=== PATIENT | female | born 1970 | race Hispanic/Latino ===

== ENCOUNTER 2016-06-28 20:19 | Emergency (ER) | payer SELFPAY ==
[~2016-06-28] VITALS: Ht 149.9 cm; Wt 95.5 kg
[~2016-06-28 20:19] MED LIST: AMOX-366 PO; CIPR-198 PO; CIPR-231 PO; DICY20TA33 PO; DOCU-41 PO; HYDR-4003 PO; IBUP-1827 PO; L.AC1CAP6 PO; LACT1CAP65 PO; METR500T PO; METR500T19 PO; ONDA4TAB6 PO; ONDA4TAB9 PO; ONDA8TAB10 PO; OXYC-407 PO; OXYC1TAB24 PO; POLY17PO6 PO; SULF1TAB7 PO
[2016-06-28 20:34] VITALS: BP 137/90; PULSE 73; RESP 16; O2SAT 93
[2016-06-28 21:19] LABS: BASOPHILS % (AUTO) 0.1 % (0-3); EOSINOPHILS % (AUTO) 1.6 % (0-5); Mean Corpuscular Hemoglobin 28.8 pg (27.0-35.0); Mean Corpuscular Volume 84.5 fL (81-100); NEUTROPHILS % (AUTO) 67.2 % (40-74); Platelet Count 236 bil/L (150-400)
[2016-06-28 21:40] LABS: Magnesium 1.9 mg/dL (1.6-2.6)
[2016-06-28 21:44] LABS: APPEARANCE,URINE CLEAR (CLEAR,HAZY); COLOR,URINE YELLOW (YELLOW); OCCULT BLOOD,URINE SMALL (NEGATIVE); UROBILINOGEN,URINE NORMAL (NORMAL)
--- NOTE | 2016-06-28 22:40 | ED.REPORT ---
HPI-Abd Pain F 40 and Over Date of Service Jun 28, 2016 ED Provider: Dr. Brigido Sabillon D.O. A 45 year old female with a history of diverticulosis with recurrent diverticulitis presents to the ED with diffuse abdominal pain onset just prior to arrival. Associated symptoms include nausea, vomiting, and diarrhea. Her symptoms are similar to those from previous diverticulitis, for which she has a colon surgery scheduled in the near future. Nursing Notes Stated Complaint: DIVERTICULITIS Chief Complaint: Female Abdominal Pain Nursing Notes Reviewed: Yes Allergies: Coded Allergies: No Known Allergies (Verified , 06/28/16) Scheduled Amoxicillin/Clav K 875-125 mg (Augmentin 875-125 mg) 1 Each Tablet 1 TABLET PO BID Amoxicillin/Clav K 875-125 mg (Augmentin 875-125 mg) 1 Each Tablet 1 TABLET PO BID Amoxicillin/Clav K 875-125 mg (Augmentin 875-125 mg) 1 Each Tablet 1 TABLET PO BID Ciprofloxacin (Cipro) 500 Mg Tablet 500 MG PO BID Ciprofloxacin (Cipro) 500 Mg Tablet 500 MG PO BID Ciprofloxacin (Ciprofloxacin) 500 Mg Tablet 500 MG PO BID L.acidoph & Paracasei,B.lactis (Probiotic) 10 Billion Cell Capsule 1 EACH PO DAILY Lactobacillus Acidophilus (Probiotic) 1 Each Capsule 1 EACH PO DAILY Metronidazole (Metronidazole) 500 Mg Tablet 500 MG PO QID Metronidazole (Flagyl) 500 Mg Tablet 500 MG PO Q8H Metronidazole (Metronidazole) 500 Mg Tablet 500 MG PO TID Metronidazole (Metronidazole) 500 Mg Tablet 500 MG PO TID Metronidazole (Flagyl) 500 Mg Tablet 500 MG PO Q8H Polyethylene Glycol 3350 (Miralax) 17 Gm Powd.pack 17 GM PO DAILY Sulfamethoxazole/Trimeth 800-160 mg (Bactrim DS) 1 Each Tablet 1 TABLET PO BID Scheduled PRN Dicyclomine (Bentyl) 20 Mg Tablet 20 MG PO QID PRN PRN For Pain Docusate Sodium (Colace) 100 Mg Capsule 200 MG PO DAILY PRN PRN For Constipation Hydrocodone-Acetaminophen 5-325 mg (Hydrocodone-Acetaminophen 5-325 mg) 1 Each Tablet 1-2 TABLET PO Q4H PRN PRN For Pain Hydrocodone-Acetaminophen 5-325 mg (Hydrocodone-Acetaminophen 5-325 mg) 1 Each Tablet 1 TABLET PO q4-6h PRN PRN For Pain Hydrocodone-Acetaminophen 5-325 mg (Hydrocodone-Acetaminophen 5-325 mg) 1 Each Tablet 1 TABLET PO Q4H PRN PRN For Pain Hydrocodone-Acetaminophen 5-325 mg (Hydrocodone-Acetaminophen 5-325 mg) 1 Each Tablet 1 TABLET PO Q6H PRN PRN For Pain Hydrocodone-Acetaminophen 5-325 mg (Hydrocodone-Acetaminophen 5-325 mg) 1 Each Tablet 1-2 TABLET PO TID PRN PRN For Pain Hydrocodone-Acetaminophen 5-325 mg (Hydrocodone-Acetaminophen 5-325 mg) 1 Each Tablet 1 TABLET PO Q4H PRN PRN For Pain Ibuprofen (Ibuprofen) 600 Mg Tablet 600 MG PO QID PRN PRN For Pain Ondansetron (Zofran) 4 Mg Tablet 4 MG PO Q4H PRN PRN For Nausea Ondansetron ODT (Ondansetron ODT) 8 Mg Tab.rapdis 8 MG PO Q4H PRN PRN For Nausea Ondansetron ODT (Zofran ODT) 4 Mg Tablet 4 MG PO Q4H PRN PRN For Nausea Oxycodone HCl/Acetaminophen 5-325 (Endocet 5-325) 1 Each Tablet 1 TABLET PO Q4H PRN PRN For Pain oxyCODONE-Acetaminophen 5-325 mg (oxyCODONE-Acetaminophen 5-325 mg) 1 Each Tablet 1-2 TAB PO Q6H PRN PRN For Pain General Time Seen by MD: 22:39 Chief Complaint Abdominal pain Hx Obtained From: Patient Arrived By: Walk-in Sudden in Onset?: No Onset Occurred: Just prior to arrival Symptom Duration: Since onset Location: : Diffuse Quality: Painful Severity: Current: Moderate Severity: Maximum: Moderate Associated with: Reports: Diarrhea, Nausea, Vomiting, Denies: Fever Pertinent Negative: Relieved by nothing Context Related History: Reports: Diverticulosis Recent Healthcare: No recent doctor visit Similar Sx Previous: Yes Past Medical History Past Medical History Notes: PCP Dr. Weldon Recurrent diverticulitis - 10 CT's in past few years, 9 positive for diverticulitis, last CT + 06/2015 Past Medical History Diverticulosis w/ recurrent diverticulitis Past Surgical History Colonoscopy 09/2015 with diverticulosis and small segments of possible hyperplasia - biopsies negative x3 Appendectomy Cholecystectomy Hysterectomy Family History noncontributory Smoking History Never Smoker Social History Alcohol Use: Denies alcohol use Drug Use: Denies drug use Other Social History: Good social support, Local resident Ambulatory Status Independent Review of Systems Constitutional: Denies: Fever Respiratory: Denies: Non-productive cough, Shortness of breath GI: Reports: Abdominal pain, Diarrhea, Nausea, Vomiting Complete sys rev & neg: except as marked. Physical Exam Vital Signs Vital Signs (First) Date Time Temp Pulse Resp B/P Pulse Ox O2 Delivery O2 Flow Rate FiO2 06/28/16 20:34 36.9 73 16 137/90 93 Room Air Initial VS: Reviewed Head / Eyes: Atraumatic, Normocephalic ENT: Conjunctiva normal, No scleral icterus Neck: Supple, Non-tender, Full range of motion Skin: Warm, Dry, No cyanosis Neurologic: Alert, Oriented, Nonfocal Psychiatric: Mood/affect normal, Behavior normal, Normal thought content General/Constitutional: Awake, Alert, No acute distress Respiratory / Chest: Breath sounds NL, Breath sounds = bilat, No respiratory distress Cardiovascular: Heart rate NL, Regular rhythm, Heart sounds NL Abdomen: Soft Tenderness/Guarding/Rebound: Positive: Tender diffuse Interpretation & Diagnostics Lab Results Interpretation Result Diagram: 06/28/16210806/28/162108 Test 06/28/16 21:09 06/28/16 21:25 06/28/16 23:15 White Blood Count 11.6th/mm3 (3.8-10.1) Red Blood Count 4.44mil/mm3 (3.90-5.20) Hemoglobin 12.8g/dL (12.0-15.6) Hematocrit 37.5% (35.0-46.0) Mean Corpuscular Volume 84.5fL (81-100) Mean Corpuscular Hemoglobin 28.8pg (27.0-35.0) Mean Corpuscular Hemoglobin Concent 34.1% (32.0-37.0) Red Cell Distribution Width 12.8% (12.3-15.4) Platelet Count 236bil/L (150-400) Neutrophils (%) (Auto) 67.2% (40-74) Lymphocytes (%) (Auto) 25.9% (14-46) Monocytes (%) (Auto) 5.0% (4-12) Eosinophils (%) (Auto) 1.6% (0-5) Basophils (%) (Auto) 0.1% (0-3) Sodium Level 135mEq/L (134-144) Potassium Level 3.5mEq/L (3.5-5.2) Chloride Level 99mEq/L (97-108) Carbon Dioxide Level 23mmol/L (18-29) Blood Urea Nitrogen 16mg/dL (6-24) Creatinine 0.54mg/dL (0.57-1.00) Estimat Glomerular Filtration Rate 176mL/min (>59) Glucose Level 104mg/dL (60-99) Lactic Acid Level 1.1mmol/L (0.4-2.0) Calcium Level 8.9mg/dL (8.5-10.1) Magnesium Level 1.9mg/dL (1.6-2.6) Total Bilirubin 0.2mg/dL (0.0-1.2) Aspartate Amino Transf (AST/SGOT) 22U/L (0-50) Alanine Aminotransferase (ALT/SGPT) 24U/L (0-32) Alkaline Phosphatase 49U/L (25-150) Total Protein 8.1g/dL (6.4-8.4) Albumin 4.1g/dL (3.4-5.0) Lipase 23U/L (13-60) Urine Color Yellow (YELLOW) Urine Appearance Clear (CLEAR,HAZY) Urine pH 6.0 (5.0-8.0) Urine Specific [place] 1.020 (1.003-1.035) Urine Protein Negativemg/dL (NEG,TRACE) Urine Glucose (UA) Negativemg/dL (NEGATIVE) Urine Ketones Negativemg/dL (NEGATIVE) Urine Occult Blood Small (NEGATIVE) Urine Nitrite Negative (NEGATIVE) Urine Bilirubin Negative (NEGATIVE) Urine Urobilinogen Normalmg/dL (NORMAL) Urine Leukocyte Esterase Negative (NEGATIVE) Urine RBC 0-2/hpf (0-2) Urine WBC 0-5/hpf (0-5) Urine Epithelial Cells None/hpf (NONE-MOD) Urine Crystals None seen (NONE SEEN) Urine Bacteria None/hpf (NONE-FEW) Urine Hyaline Casts None/lpf (NONE) Urine Granular Casts None seen (NONE SEEN) Urine Waxy Casts None seen (NONE SEEN) Urine Red Blood Cell Casts None seen (NONE SEEN) Urine White Blood Cell Casts None seen (NONE SEEN) Urine Mucus Present (None Seen) Urine Trichomonas None seen (NONE SEEN) Urine Yeast None (NONE SEEN) Urinalysis Comment None Urine Culture Reflexed Not indicated Hold Purple Top Tube Received (Received) Hold Blue Top Tube Received (Received) Hold [place] Top Tube Received (Received) Hold Giordano Top Tube Received (Received) Re-Eval/Medical Decision Med Decision/Clinical Course 45-year-old female with a history of recurrent left-sided diverticulitis presents with 6 hours of left lower quadrant abdominal pain that is consistent with prior bouts of diverticulitis. She did not have a fever. On examination she had mild tenderness without any evidence of peritonitis. Laboratory work showed a mild leukocytosis. A presumed diagnosis of diverticulitis was made. She received IV Rocephin and Flagyl. I consulted with Dr. Prashant dong from [facility]. We are going to forego CT imaging because she is going to have next day follow -up. She has had multiple CAT scans within the last year. I discussed this with Denise using the flour broker. She concurs. At discharge she was essentially pain-free and she looked well. No signs of sepsis or peritonitis. Next a follow-up arranged. Source of Hx: Old records Re-Evaluation/Progress : Time of Eval: 01:18 Patient Status: Condition improved Re-Evaluation/Progress Note: Discussed with patient lab results, diagnosis, and plan for discharge. Follow-up and return to the ER instructions given. Patient agrees with plan for care and all questions were addressed. Consultation : Referral / Consult Name: Irena Cerda MD Consulted With: Primary care physician Call Returned at: 23:39 Financial Sales Associate: Will see in office, Agrees with eval, Agrees with plan Note: Patient can be seen at [facility] tomorrow Counseled Regarding: Diagnosis, Lab results, Need for follow-up, When/why to return to ED Discharge & Departure Primary Impression: Diverticulitis Diverticulitis site: unspecified part of intestinal tract Diverticulitis bleeding: without bleeding Diverticulitis complication: without perforation or abscess Qualified Code: K57.92 - Diverticulitis of intestine, part unspecified, without perforation or abscess without bleeding Disposition: Home Discharge Condition All VS Reviewed: Yes Condition: Stable Patient Instructions: Acute Abdominal Pain (ED), Diverticulitis (ED) Additional Instructions: Your signs and symptoms are most consistent with acute diverticulitis. White blood cell count is 11,000. You and I have decided to not perform a CAT scan because you have had multiple CAT scans this year. We treated you for diverticulitis with Rocephin and Flagyl. Take Cipro twice daily for 10 days. Take Flagyl 3 times daily for 10 days. I consulted with Dr. Cerda. You need to be seen tomorrow at the [facility]. If her pain has not improved or you are feeling worse then he will have to have another CAT scan. He may take 1-2 Dieterich every 6 hours as needed tonight. Clear liquid diet. Do not drive tonight. Do not drive or drink alcohol or consume acetaminophen while taking the Dieterich. Call [facility] clinic first thing in the morning for follow-up time. Tell them that you were seen in the emergency department and need to be followed up with tomorrow. Do not hesitate to return if any problems or any worsening symptoms. GOOGLE TRANSLATE Chantale signos y sntomas son ms consistentes con la diverticulitis aguda. El recuento de glbulos blancos es de 11.000. T y yo hemos decidido no realizar lida exploracin CAT porque has tenido varias tomografas CAT jania ao. Te tratamos por diverticulitis con Rocephin y Flagyl. [place] Cipro dos veces al da luigi 10 rajan. [place] Flagyl 3 veces al da luigi [address] rajan[address] Consult con el Dr[address] Cerda. Necesitas que te vean maana en la clnica [facility]. Si hernandez dolor no fonseca franchesca o usted se siente peor, entonces tendr que tener otro TAC. Puede goran 1-2 Dieterich cada 6 horas segn sea necesario esta noche. Dieta lquida adolph. No manejes esta noche. No conduzca ni cara alcohol ni consuma acetaminof n mientras tru el Dieterich. Llame a la clnica de [place] a primera hora de la ma phani para el tiempo de seguimiento. Dgales que usted fue visto en el departamento de emergencia y necesita ser seguido con maana. No dude en volver si hay problemas o cualquier empeoramiento de los sntomas. Referrals: Denzel Weldon MD (PCP) Scribe Attestation Portions of this note were transcribed by Yady Mueller. I, Dr. Sabillon, personally performed the history, physical exam, and medical decision-making; I reviewed and confirmed the accuracy of the information in the transcribed note. Signed by: Fredis Benavidez, 06/29/2016, 01:18 copies to: Denzel Weldon MD, Todd P DO Jun 28, 2016 22:40 YADY MUELLER Jun 28, 2016 23:09
[2016-06-28] MEDS ORDERED: Peds - CefTRIAXone 40 mg/mL 2,000 MG in Syringe 1 EACH IV ONE (22:45)
[2016-06-28] MEDS ORDERED: metroNIDAZOLE Inj 500 MG in IV Premix 1 EACH IV ONE (22:45)
[2016-06-28] MEDS ORDERED: cefTRIAXone 2,000 mg/D5W 50 mL IV Minibag Plus IV ONE ×2 (22:50)
[2016-06-28] MEDS ORDERED: Ondansetron 2 mg/mL 2 mL Inj IVPUSH PRN (23:00)
[2016-06-28] MEDS: HYDROmorphone 0.5 mg/0.5 mL iSecure Syringe IVPUSH PRN (23:15)
[2016-06-29] MEDS: HYDROmorphone 0.5 mg/0.5 mL iSecure Syringe IVPUSH PRN (00:25)
[2016-06-29] MEDS ORDERED: _HYDROcodone/APAP 5-325 mg Tablet PO PRN (01:00)
[2016-06-29 01:52] VITALS: BP 99/55; PULSE 63; RESP 14; O2SAT 97
== END 2016-06-29 01:53 | disposition home or self-care (01) ==
LOC: SED 20:19
DX: K57.32 Diverticulitis of large intestine without perforation or abscess without bleeding (principal); Z90.49 Acquired absence of other specified parts of digestive tract
CPT/HCPCS: 36415; 80053; 81000; 81025; 83605; 83690; 83735; 85025; 96365; 96366; 96368; 96375; 96376; 99285; J0696; J1170; J1200; J2405; J3490

== ENCOUNTER 2016-08-29 19:12 | Emergency (ER) | payer SELFPAY ==
[~2016-08-29] VITALS: Ht 147.3 cm; Wt 97.0 kg
[2016-08-29 19:17] VITALS: BP 127/77; PULSE 62; RESP 16; O2SAT 99
--- NOTE | 2016-08-29 20:06 | ED.REPORT ---
HPI-Abd Pain F 40 and Over Date of Service Aug 29, 2016 ED Provider: Denzel Jordan MD Pt is a Wolof speaking 45 year old female with a history of diverticulitis who presents to the ED with concerns for nausea, vomiting, diarrhea and LLQ abdominal pain that started 3 days ago. She reports that her last episode of diverticulitis was 3 months ago. She states that she had a normal colonoscopy in June. Pt admits to watery diarrhea for 3 days and well as non-bilious vomiting. She denies any fevers, sick contacts or any other symptoms.She reports that this pain feels similar to her previous episodes of diverticulitis. Nursing Notes Stated Complaint: DIVERTICULITIS Chief Complaint: Female Abdominal Pain Nursing Notes Reviewed: Yes Allergies: Coded Allergies: No Known Allergies (Verified , 06/28/16) Scheduled Amoxicillin/Clav K 875-125 mg (Augmentin 875-125 mg) 1 Each Tablet 1 TABLET PO BID Amoxicillin/Clav K 875-125 mg (Augmentin 875-125 mg) 1 Each Tablet 1 TABLET PO BID Amoxicillin/Clav K 875-125 mg (Augmentin 875-125 mg) 1 Each Tablet 1 TABLET PO BID Ciprofloxacin (Cipro) 500 Mg Tablet 500 MG PO BID Ciprofloxacin (Cipro) 500 Mg Tablet 500 MG PO BID Ciprofloxacin (Ciprofloxacin) 500 Mg Tablet 500 MG PO BID Ciprofloxacin (Ciprofloxacin) 500 Mg Tablet 500 MG PO BID L.acidoph & Paracasei,B.lactis (Probiotic) 10 Billion Cell Capsule 1 EACH PO DAILY Lactobacillus Acidophilus (Probiotic) 1 Each Capsule 1 EACH PO DAILY Metronidazole (Metronidazole) 500 Mg Tablet 500 MG PO QID Metronidazole (Flagyl) 500 Mg Tablet 500 MG PO Q8H Metronidazole (Metronidazole) 500 Mg Tablet 500 MG PO TID Metronidazole (Metronidazole) 500 Mg Tablet 500 MG PO TID Metronidazole (Flagyl) 500 Mg Tablet 500 MG PO Q8H Metronidazole (Flagyl) 500 Mg Tablet 500 MG PO Q8H Polyethylene Glycol 3350 (Miralax) 17 Gm Powd.pack 17 GM PO DAILY Sulfamethoxazole/Trimeth 800-160 mg (Bactrim DS) 1 Each Tablet 1 TABLET PO BID Scheduled PRN Dicyclomine (Bentyl) 20 Mg Tablet 20 MG PO QID PRN PRN For Pain Docusate Sodium (Colace) 100 Mg Capsule 200 MG PO DAILY PRN PRN For Constipation Hydrocodone-Acetaminophen 5-325 mg (Hydrocodone-Acetaminophen 5-325 mg) 1 Each Tablet 1-2 TABLET PO Q4H PRN PRN For Pain Hydrocodone-Acetaminophen 5-325 mg (Hydrocodone-Acetaminophen 5-325 mg) 1 Each Tablet 1 TABLET PO q4-6h PRN PRN For Pain Hydrocodone-Acetaminophen 5-325 mg (Hydrocodone-Acetaminophen 5-325 mg) 1 Each Tablet 1 TABLET PO Q4H PRN PRN For Pain Hydrocodone-Acetaminophen 5-325 mg (Hydrocodone-Acetaminophen 5-325 mg) 1 Each Tablet 1 TABLET PO Q6H PRN PRN For Pain Hydrocodone-Acetaminophen 5-325 mg (Hydrocodone-Acetaminophen 5-325 mg) 1 Each Tablet 1-2 TABLET PO TID PRN PRN For Pain Hydrocodone-Acetaminophen 5-325 mg (Hydrocodone-Acetaminophen 5-325 mg) 1 Each Tablet 1 TABLET PO Q4H PRN PRN For Pain Hydrocodone-Acetaminophen 5-325 mg (Hydrocodone-Acetaminophen 5-325 mg) 1 Each Tablet 1 TABLET PO Q4H PRN PRN For Pain Ibuprofen (Ibuprofen) 600 Mg Tablet 600 MG PO QID PRN PRN For Pain Ondansetron (Zofran) 4 Mg Tablet 4 MG PO Q4H PRN PRN For Nausea Ondansetron ODT (Ondansetron ODT) 8 Mg Tab.rapdis 8 MG PO Q4H PRN PRN For Nausea Ondansetron ODT (Zofran ODT) 4 Mg Tablet 4 MG PO Q4H PRN PRN For Nausea Ondansetron ODT (Zofran ODT) 4 Mg Tablet 4 MG PO Q4H PRN PRN For Nausea Oxycodone HCl/Acetaminophen 5-325 (Endocet 5-325) 1 Each Tablet 1 TABLET PO Q4H PRN PRN For Pain oxyCODONE-Acetaminophen 5-325 mg (oxyCODONE-Acetaminophen 5-325 mg) 1 Each Tablet 1-2 TAB PO Q6H PRN PRN For Pain General Time Seen by MD: 20:05 Chief Complaint Abdominal pain Hx Obtained From: Patient Arrived By: Walk-in Sudden in Onset?: Yes Onset Occurred: 3 days ago Symptom Duration: Since onset Location: : LLQ Quality: Painful Severity: Current: Mild Severity: Maximum: Moderate Similar Sx Previous: Yes Past Medical History Past Medical History Notes: PCP Dr. Weldon Recurrent diverticulitis - 10 CT's in past few years, 9 positive for diverticulitis, last CT + 06/2015 Past Medical History Diverticulosis w/ recurrent diverticulitis Past Surgical History Colonoscopy 09/2015 with diverticulosis and small segments of possible hyperplasia - biopsies negative x3 Appendectomy Cholecystectomy Hysterectomy Family History noncontributory Smoking History Never Smoker Social History Alcohol Use: Denies alcohol use Drug Use: Denies drug use Other Social History: Good social support, Local resident Ambulatory Status Independent Review of Systems Constitutional: Denies: Chills, Fever, Malaise, Weakness - generalized Respiratory: Denies: Non-productive cough, Shortness of breath, Wheezing Cardiovascular: Denies: Chest pain, Syncope GI: Reports: Abdominal pain, Diarrhea, Nausea, Vomiting, Denies: Constipation, Hematemesis, Hematochezia Female: Denies: Dysuria, Flank pain, Urinary urgency Musculoskeletal: Denies: Back pain Complete sys rev & neg: except as marked. Physical Exam Vital Signs Vital Signs (First) Date Time Temp Pulse Resp B/P Pulse Ox O2 Delivery O2 Flow Rate FiO2 08/29/16 19:17 36.4 62 16 127/77 99 Room Air Initial VS: Reviewed Head / Eyes: Atraumatic, Normocephalic, PERRL ENT: Mucous membranes moist, Conjunctiva normal, No scleral icterus Neck: Supple, Non-tender, Full range of motion Skin: Warm, Dry, No cyanosis Neurologic: Alert, Oriented, Nonfocal General/Constitutional: Awake, Alert, Well appearing, Well developed, Well nourished, Cooperative Respiratory / Chest: Atraumatic, Breath sounds NL, Breath sounds = bilat, No respiratory distress Cardiovascular: Heart rate NL, Regular rhythm, Heart sounds NL Abdomen: Atraumatic, Soft, No guarding, No rebound Tenderness/Guarding/Rebound: Positive: Tender LLQ... (Mild) Back: Atraumatic, Inspection NL, No CVA tenderness Interpretation & Diagnostics Lab Results Interpretation Result Diagram: 08/29/16195508/29/161955 Test 08/29/16 19:56 08/29/16 22:14 White Blood Count 8.5th/mm3 (3.8-10.1) Red Blood Count 4.33mil/mm3 (3.90-5.20) Hemoglobin 12.5g/dL (12.0-15.6) Hematocrit 37.3% (35.0-46.0) Mean Corpuscular Volume 86.1fL (81-100) Mean Corpuscular Hemoglobin 28.9pg (27.0-35.0) Mean Corpuscular Hemoglobin Concent 33.5% (32.0-37.0) Red Cell Distribution Width 13.3% (12.3-15.4) Platelet Count 236bil/L (150-400) Neutrophils (%) (Auto) 57.7% (40-74) Lymphocytes (%) (Auto) 34.5% (14-46) Monocytes (%) (Auto) 5.4% (4-12) Eosinophils (%) (Auto) 2.2% (0-5) Basophils (%) (Auto) 0.1% (0-3) Sodium Level 137mEq/L (134-144) Potassium Level 3.8mEq/L (3.5-5.2) Chloride Level 99mEq/L (97-108) Carbon Dioxide Level 24mmol/L (18-29) Blood Urea Nitrogen 19mg/dL (6-24) Creatinine 0.61mg/dL (0.57-1.00) Estimat Glomerular Filtration Rate 153mL/min (>59) Glucose Level 101mg/dL (60-99) Calcium Level 9.3mg/dL (8.5-10.1) Magnesium Level 2.1mg/dL (1.6-2.6) Total Bilirubin 0.2mg/dL (0.0-1.2) Aspartate Amino Transf (AST/SGOT) 23U/L (0-50) Alanine Aminotransferase (ALT/SGPT) 24U/L (0-32) Alkaline Phosphatase 48U/L (25-150) Total Protein 8.7g/dL (6.4-8.4) Albumin 4.1g/dL (3.4-5.0) Lipase 24U/L (13-60) Hold Giordano Top Tube Received (Received) Hold Urine Received (Received) Re-Eval/Medical Decision Med Decision/Clinical Course 45-year-old female history of diverticulitis presenting with left lower quadrant pain times several days. Mild left lower quadrant tenderness. White blood count is normal. Afebrile. Vital signs stable. Tolerating by mouth. We will treat for presumed diverticulitis. No imaging necessary at this time given abdomen soft no peritoneal signs, vital signs stable minimal tenderness. We will treat with Cipro Flagyl. Recommend follow-up with primary doctor tomorrow. Return precautions given with new or worsening abdominal pain nausea vomiting or other new or worsening symptoms. Source of Hx: Old records Re-Evaluation/Progress : Time of Eval: 21:49 Re-Evaluation/Progress Note: Pt is rechecked and informed of her diagnosis and the plan to discharge her at this time. She understands and agrees, all questions are addressed. Counseled Regarding: Diagnosis, Lab results, Need for follow-up, When/why to return to ED Discharge & Departure Primary Impression: Diverticulitis Diverticulitis site: unspecified part of intestinal tract Diverticulitis bleeding: without bleeding Diverticulitis complication: without perforation or abscess Qualified Code: K57.92 - Diverticulitis of intestine, part unspecified, without perforation or abscess without bleeding Disposition: Home Discharge Condition All VS Reviewed: Yes Condition: Stable Patient Instructions: Diverticulitis (ED) Additional Instructions: It appears that you have diverticulitis. Take the prescription as written. Follow up with your primary care provider tomorrow. Return to the emergency with any worsening nausea, vomiting, abdominal pain or any other new or worsening symptoms. Referrals: Denzel Weldon MD (PCP) Fredis Attestation Portions of this note were transcribed by Dr. Santiago. I, Bety Gant personally performed the history, physical exam and medical decision-making; I reviewed and confirmed the accuracy of the information in the transcribed note. Signed by: Fredis Aaron, 08/29 22:16 copies to: Denzel Weldon MD, Ben M MD Aug 29, 2016 20:06 LUIGI GANT Aug 29, 2016 21:32
[2016-08-29 20:11] LABS: BASOPHILS % (AUTO) 0.1 % (0-3); EOSINOPHILS % (AUTO) 2.2 % (0-5); MONOCYTES % (AUTO) 5.4 % (4-12); Mean Corpuscular Hemoglobin 28.9 pg (27.0-35.0); Mean Corpuscular Volume 86.1 fL (81-100); NEUTROPHILS % (AUTO) 57.7 % (40-74); Platelet Count 236 bil/L (150-400)
[2016-08-29 20:29] LABS: Magnesium 2.1 mg/dL (1.6-2.6)
[2016-08-29] MEDS ORDERED: HYDR-4003 PO (21:34)
[2016-08-29] MEDS ORDERED: METR500T PO (21:34)
[2016-08-29] MEDS ORDERED: CIPR-198 PO (21:34)
[2016-08-29] MEDS ORDERED: ONDA4TAB9 PO (21:34)
[2016-08-29] MEDS ORDERED: HYDROcodone-APAP 5-325 mg Tablet PO ONE (21:35)
[2016-08-29 21:50] VITALS: BP 120/77; PULSE 62; RESP 16; O2SAT 98
[2016-08-29 22:46] VITALS: BP 120/77; PULSE 62; RESP 16; O2SAT 98
== END 2016-08-29 22:48 | disposition home or self-care (01) ==
LOC: SED 19:12
DX: K57.92 Diverticulitis of intestine, part unspecified, without perforation or abscess without bleeding (principal)

== ENCOUNTER 2016-12-28 17:39 | Emergency (ER) | payer SELFPAY ==
[~2016-12-28] VITALS: Ht 144.8 cm; Wt 97.7 kg
[2016-12-28 17:42] VITALS: BP 148/83; PULSE 60; RESP 18; O2SAT 99
--- NOTE | 2016-12-28 18:17 | ED.REPORT ---
HPI-Abd Pain F 40 and Over Date of Service Dec 28, 2016 ED Provider: Mikey Romero DO Pt is a 45 year old female with a hx of diverticulitis presenting to the ED complaining of burning/ itching pelvic pain onset 2 days ago. Associated symptoms include dysuria, although she has the pain when she is not urinating as well. She also had dizziness yesterday while cooking. She denies any previous similar symptoms. A couple days ago she saw Dr. Chaidez at [facility] for a rash in the groin region and was started on a cream and pills for it (she is not sure which type), but she believes this is a different problem. Denies fever , chills, cramps, or vaginal bleeding. The only daily medication she is on is an antidepressant which helps with her post menopausal symptoms. She states that these symptoms do not feel similar to her previous episode of diverticulitis because she doesn't have that much pain, it is mostly a burning sensation that feels deeper than her skin. Nursing Notes Stated Complaint: VAGINAL PAIN Chief Complaint: Female Abdominal Pain Nursing Notes Reviewed: Yes Allergies: Coded Allergies: No Known Allergies (Verified , 12/28/16) Scheduled Amoxicillin/Clav K 875-125 mg (Augmentin 875-125 mg) 1 Each Tablet 1 TABLET PO BID Amoxicillin/Clav K 875-125 mg (Augmentin 875-125 mg) 1 Each Tablet 1 TABLET PO BID Amoxicillin/Clav K 875-125 mg (Augmentin 875-125 mg) 1 Each Tablet 1 TABLET PO BID Ciprofloxacin (Cipro) 500 Mg Tablet 500 MG PO BID Ciprofloxacin (Cipro) 500 Mg Tablet 500 MG PO BID Ciprofloxacin (Ciprofloxacin) 500 Mg Tablet 500 MG PO BID Ciprofloxacin (Ciprofloxacin) 500 Mg Tablet 500 MG PO BID L.acidoph & Paracasei,B.lactis (Probiotic) 10 Billion Cell Capsule 1 EACH PO DAILY Lactobacillus Acidophilus (Probiotic) 1 Each Capsule 1 EACH PO DAILY Metronidazole (Metronidazole) 500 Mg Tablet 500 MG PO QID Metronidazole (Flagyl) 500 Mg Tablet 500 MG PO Q8H Metronidazole (Metronidazole) 500 Mg Tablet 500 MG PO TID Metronidazole (Metronidazole) 500 Mg Tablet 500 MG PO TID Metronidazole (Flagyl) 500 Mg Tablet 500 MG PO Q8H Metronidazole (Flagyl) 500 Mg Tablet 500 MG PO Q8H Polyethylene Glycol 3350 (Miralax) 17 Gm Powd.pack 17 GM PO DAILY Sulfamethoxazole/Trimeth 800-160 mg (Bactrim DS) 1 Each Tablet 1 TABLET PO BID Scheduled PRN Dicyclomine (Bentyl) 20 Mg Tablet 20 MG PO QID PRN PRN For Pain Docusate Sodium (Colace) 100 Mg Capsule 200 MG PO DAILY PRN PRN For Constipation Hydrocodone-Acetaminophen 5-325 mg (Hydrocodone-Acetaminophen 5-325 mg) 1 Each Tablet 1-2 TABLET PO Q4H PRN PRN For Pain Hydrocodone-Acetaminophen 5-325 mg (Hydrocodone-Acetaminophen 5-325 mg) 1 Each Tablet 1 TABLET PO q4-6h PRN PRN For Pain Hydrocodone-Acetaminophen 5-325 mg (Hydrocodone-Acetaminophen 5-325 mg) 1 Each Tablet 1 TABLET PO Q4H PRN PRN For Pain Hydrocodone-Acetaminophen 5-325 mg (Hydrocodone-Acetaminophen 5-325 mg) 1 Each Tablet 1 TABLET PO Q6H PRN PRN For Pain Hydrocodone-Acetaminophen 5-325 mg (Hydrocodone-Acetaminophen 5-325 mg) 1 Each Tablet 1-2 TABLET PO TID PRN PRN For Pain Hydrocodone-Acetaminophen 5-325 mg (Hydrocodone-Acetaminophen 5-325 mg) 1 Each Tablet 1 TABLET PO Q4H PRN PRN For Pain Hydrocodone-Acetaminophen 5-325 mg (Hydrocodone-Acetaminophen 5-325 mg) 1 Each Tablet 1 TABLET PO Q4H PRN PRN For Pain Ibuprofen (Ibuprofen) 600 Mg Tablet 600 MG PO QID PRN PRN For Pain Ondansetron (Zofran) 4 Mg Tablet 4 MG PO Q4H PRN PRN For Nausea Ondansetron ODT (Ondansetron ODT) 8 Mg Tab.rapdis 8 MG PO Q4H PRN PRN For Nausea Ondansetron ODT (Zofran ODT) 4 Mg Tablet 4 MG PO Q4H PRN PRN For Nausea Ondansetron ODT (Zofran ODT) 4 Mg Tablet 4 MG PO Q4H PRN PRN For Nausea Oxycodone HCl/Acetaminophen 5-325 (Endocet 5-325) 1 Each Tablet 1 TABLET PO Q4H PRN PRN For Pain oxyCODONE-Acetaminophen 5-325 mg (oxyCODONE-Acetaminophen 5-325 mg) 1 Each Tablet 1-2 TAB PO Q6H PRN PRN For Pain General Time Seen by MD: 18:13 Chief Complaint Pelvic pain Hx Obtained From: Patient Arrived By: Walk-in Sudden in Onset?: No Onset Occurred: 2 days ago Symptom Duration: Since onset Progression since Onset: Constant Quality: Burning, Painful Severity: Current: Mild Severity: Maximum: Moderate Recent Healthcare: No recent doctor visit, No recent hospitalization Similar Sx Previous: No Past Medical History Past Medical History Notes: PCP Dr. Weldon Recurrent diverticulitis - 10 CT's in past few years, 9 positive for diverticulitis, last CT + 06/2015 Past Medical History Diverticulosis w/ recurrent diverticulitis Denies: Diabetes mellitus, Hypertension Past Surgical History Colonoscopy 09/2015 with diverticulosis and small segments of possible hyperplasia - biopsies negative x3 Appendectomy Cholecystectomy Hysterectomy Family History noncontributory Smoking History Never Smoker Social History Alcohol Use: Denies alcohol use Drug Use: Denies drug use Other Social History: Good social support, Local resident Ambulatory Status Independent Review of Systems Constitutional: Denies: Chills, Fever Female: Reports: Dysuria, Pelvic pain Complete sys rev & neg: except as marked. Skin: Reports Rash Neurologic: Reports: Dizziness Physical Exam Vital Signs Vital Signs (First) Date Time Temp Pulse Resp B/P Pulse Ox O2 Delivery O2 Flow Rate FiO2 12/28/16 17:42 36.2 60 18 148/83 99 Room Air Initial VS: Reviewed Head / Eyes: Atraumatic, Normocephalic, PERRL ENT: Mucous membranes moist, Conjunctiva normal, No scleral icterus Extremities: Vascular intact, Neuro intact, No swelling, No tenderness Neurologic: Alert, Oriented, Nonfocal Psychiatric: Mood/affect normal, Behavior normal, Normal thought content General/Constitutional: Awake, Alert, No acute distress, Well appearing Respiratory / Chest: Breath sounds NL, Breath sounds = bilat, No respiratory distress, No rales, No rhonchi, No wheezing, No stridor Cardiovascular: Heart rate NL, Regular rhythm, No murmurs Abdomen: Atraumatic, BS normoactive Tenderness/Guarding/Rebound: Positive: Tender LLQ... (Mild) No suprapubic tenderness Back: Atraumatic, Inspection NL, Full range of motion Skin: Warm, Dry, Intact skin discoloration with distinct border in the left groin consistent with a fungal rash. Female Genitourinary: Rcis present, Atraumatic No cervix visualized, she has had a hysterectomy. A small amount of thick white discharge noted. No external rashes visible. Lower Extremity / Pelvis / MS: Atraumatic, Inspection NL, Full range of motion , No edema Interpretation & Diagnostics Lab Results Interpretation Result Diagram: 12/28/16190912/28/161909 Test 12/28/16 18:06 12/28/16 19:10 Urine Color Yellow (YELLOW) Urine Appearance Hazy (CLEAR,HAZY) Urine pH 5.0 (5.0-8.0) Urine Specific [place] 1.025 (1.003-1.035) Urine Protein Negativemg/dL (NEG,TRACE) Urine Glucose (UA) Negativemg/dL (NEGATIVE) Urine Ketones Negativemg/dL (NEGATIVE) Urine Occult Blood Small (NEGATIVE) Urine Nitrite Negative (NEGATIVE) Urine Bilirubin Negative (NEGATIVE) Urine Urobilinogen Normalmg/dL (NORMAL) Urine Leukocyte Esterase Negative (NEGATIVE) Urine RBC 3-10/hpf (0-2) Urine WBC 0-5/hpf (0-5) Urine Epithelial Cells Moderate/hpf (NONE-MOD) Urine Crystals None seen (NONE SEEN) Urine Bacteria Few/hpf (NONE-FEW) Urine Hyaline Casts None/lpf (NONE) Urine Granular Casts None seen (NONE SEEN) Urine Waxy Casts None seen (NONE SEEN) Urine Red Blood Cell Casts None seen (NONE SEEN) Urine White Blood Cell Casts None seen (NONE SEEN) Urine Mucus None seen (None Seen) Urine Trichomonas None seen (NONE SEEN) Urine Yeast Few (NONE SEEN) Urinalysis Comment None Urine Culture Reflexed Not indicated White Blood Count 8.5th/mm3 (3.8-10.1) Red Blood Count 4.31mil/mm3 (3.90-5.20) Hemoglobin 12.1g/dL (12.0-15.6) Hematocrit 36.3% (35.0-46.0) Mean Corpuscular Volume 84.2fL (81-100) Mean Corpuscular Hemoglobin 28.1pg (27.0-35.0) Mean Corpuscular Hemoglobin Concent 33.3% (32.0-37.0) Red Cell Distribution Width 13.1% (12.3-15.4) Platelet Count 194bil/L (150-400) Neutrophils (%) (Auto) 55.9% (40-74) Lymphocytes (%) (Auto) 35.4% (14-46) Monocytes (%) (Auto) 6.8% (4-12) Eosinophils (%) (Auto) 1.4% (0-5) Basophils (%) (Auto) 0.1% (0-3) Sodium Level 137mEq/L (134-144) Potassium Level 3.8mEq/L (3.5-5.2) Chloride Level 101mEq/L (97-108) Carbon Dioxide Level 23mmol/L (18-29) Blood Urea Nitrogen 23mg/dL (6-24) Creatinine 0.54mg/dL (0.57-1.00) Estimat Glomerular Filtration Rate 176mL/min (>59) Glucose Level 113mg/dL (60-99) Calcium Level 9.1mg/dL (8.5-10.1) Total Bilirubin 0.2mg/dL (0.0-1.2) Aspartate Amino Transf (AST/SGOT) 27U/L (0-50) Alanine Aminotransferase (ALT/SGPT) 35U/L (0-32) Alkaline Phosphatase 46U/L (25-150) Total Protein 7.8g/dL (6.4-8.4) Albumin 4.0g/dL (3.4-5.0) Hold Giordano Top Tube Received (Received) CT Abd / Pelvis Interpretation CT KUB: IMPRESSION: 1. No kidney stones or hydronephrosis to explain left groin pain. 2. Small fat containing right inguinal hernia. 3. Several bilateral ovarian cysts are not significantly changed since November 2015, therefore consistent with nonfunctional cysts such as endometriomas or cystic neoplasms. 4. Mild sigmoid colon diverticulosis, without acute diverticulitis. 5. Diffuse fatty infiltration of the liver. Dictated by: Armando Lee M.D. on 12/28/2016 at 19:19 Study type: Abdominal CT no contrast Interpretation / Wet Read by: Interpret - Radiologist Re-Eval/Medical Decision Med Decision/Clinical Course Pt with h/o diverticulitis presents with LLQ tenderness and pain as well as vaginal itching. Recently started on antifungal for tinea cruris. Normal VS and labs except for small hematuria. CT neg for stones, diverticulitis. Pelvic exam consistent with vaginal yeast infection. Pt given fluconazole 150mg x1 and d/c'd home with instructions to f/u with pcp, return if worsening. Re-Evaluation/Progress #1: Time of Eval: 19:51 Patient Status: Condition improved Re-Evaluation/Progress Note: Discussed CT results and plan for pelvic exam. Re-Evaluation/Progress #2: Time of Eval: 20:49 Patient Status: Condition improved Re-Evaluation/Progress Note: Performed pelvic exam. Discussed plan for discharge. Pt understands and agrees. Counseled Regarding: Diagnosis, Lab results, Need for follow-up, When/why to return to ED Discharge & Departure Primary Impression: Abdominal pain, acute, left lower quadrant Additional Impressions: Vaginal itching Hematuria Ruled Out: Diverticulitis, Ureterolithiasis, Nephrolithiasis, UTI (urinary tract infection) Disposition: Home Discharge Condition All VS Reviewed: Yes Condition: Improved Patient Instructions: Acute Abdominal Pain (ED) Additional Instructions: Thank you for trusting us with your care. There were no dangerous causes for your symptoms found tonight, such as a kidney stone, diverticulitis, or UTI. The cause of the vaginal itching is likely related to a yeast infection. Your treated with fluconazole here in the ER and your symptoms should improve. Follow-up with your primary care provider within the next week for a recheck. Return to the ER for new or worsening symptoms GOOGLE TRANSLATE Rob por confiar en nosotros con gomez cuidado. No hubo causas peligrosas para los sntomas encontrados esta noche, sarath un c lculo renal, diverticulitis o UTI. La causa de la picazn vaginal est probablemente relacionada con lida infeccin por levaduras. Gomez tratamiento con fluconazol aqu en la mack de emergencia y naida sntomas deben mejorar. Kacey un seguimiento con gomez proveedor de atencin primaria dentro de la prxima semana para lida revisin. Regreso a la mack de emergencias por sntomas nuevos o que empeoran. Referrals: Denzel Weldon MD (PCP) Reese Chaidez MDibjonathan Attestation Portions of this note were transcribed by Starla Lewis. I, Dr. Romero personally performed the history, physical exam and medical decision-making; I reviewed and confirmed the accuracy of the information in the transcribed note. Signed by: Fredis Ding, 12/28/2016. copies to: Reese Chaidez MD; Denzel Weldon MD, Gary R DO Dec 28, 2016 18:17 STARLA LEWIS Dec 28, 2016 18:28
[2016-12-28 18:38] LABS: APPEARANCE,URINE HAZY (CLEAR,HAZY); COLOR,URINE YELLOW (YELLOW)
[2016-12-28 18:39] LABS: OCCULT BLOOD,URINE SMALL (NEGATIVE); UROBILINOGEN,URINE NORMAL (NORMAL); YEAST,URINE FEW (NONE SEEN)
[2016-12-28 19:22] LABS: BASOPHILS % (AUTO) 0.1 % (0-3); EOSINOPHILS % (AUTO) 1.4 % (0-5); MONOCYTES % (AUTO) 6.8 % (4-12); Mean Corpuscular Hemoglobin 28.1 pg (27.0-35.0); Mean Corpuscular Volume 84.2 fL (81-100); NEUTROPHILS % (AUTO) 55.9 % (40-74); Platelet Count 194 bil/L (150-400)
--- NOTE | 2016-12-28 19:30 | DRSVH ---
PROCEDURE: CT KUB ([id number]) INDICATIONS: 45 year-old female with hematuria and left groin pain. TECHNIQUE: Noncontrast 5 mm thick sections acquired from the diaphragms to the symphysis. 5 mm thick coronal an d sagittal reformats were then performed. For radiation dose reduction, the following was used: aut omated exposure control, adjustment of mA and/or kV according to patient size. COMPARISON: [facility], CT, CT ABD PELVIS W CON, 02/16/2016, 23:33. [facility], CT, CT ABD PELVIS W CON, 01/23/2016, 22:52. [facility], CT, CT KUB, 12/15/2015, 2:07. FINDINGS: Image quality: Excellent. Lung bases: Lung bases are clear. Heart size is normal. Urinary system: Both kidneys are normal in size. No kidney stones. No hydronephrosis or perinephri c fat stranding. Both ureters appear non-dilated throughout their expected courses. Bladder wall th ickness is normal; no calcified bladder stones. Other solid organs: Liver and spleen are normal in size. There is diffuse fatty infiltration of the liver. Gallbladder is surgically absent. Pancreas is normal in contours. No adrenal nodules. Peritoneum and bowel: Unenhanced bowel loops demonstrate normal wall thickness and caliber. The syl endix is unable to be seen. There is mild sigmoid colon diverticulosis. No free fluid or air. Nodes and vessels: No retroperitoneal or mesenteric adenopathy by size criteria. Aorta and inferior vena cava are normal in caliber. Abdominal wall: No ventral hernias. Pelvis: No free pelvic fluid. There is small fat containing right inguinal hernia. No inguinal brooke opathy by CT size criteria. Uterus is surgically absent. Several bilateral ovarian cysts are present, measuring up to 4.0 x 3.3 cm on the left, not significantly changed since November 2015. Bones: No suspicious bony lesions. No vertebral body compression fractures. IMPRESSION: 1. No kidney stones or hydronephrosis to explain left groin pain. 2. Small fat containing right inguinal hernia. 3. Several bilateral ovarian cysts are not significantly changed since November 2015, therefore consisten t with nonfunctional cysts such as endometriomas or cystic neoplasms. 4. Mild sigmoid colon diverticulosis, without acute diverticulitis. 5. Diffuse fatty infiltration of the liver. Dictated by: Armando Lee M.D. on 12/28/2016 at 19:19 Approved by: Armando Lee M.D. on 12/28/2016 at 19:29
[2016-12-28 20:09] VITALS: BP 125/72; PULSE 64; RESP 20; O2SAT 98
== END 2016-12-28 21:20 | disposition home or self-care (01) ==
LOC: SED 17:39
DX: R10.32 Left lower quadrant pain (principal); L29.8 Other pruritus; R31.9 Hematuria, unspecified; R30.0 Dysuria; R42 Dizziness and giddiness; Z87.19 Personal history of other diseases of the digestive system; Z90.89 Acquired absence of other organs; Z90.49 Acquired absence of other specified parts of digestive tract; Z90.710 Acquired absence of both cervix and uterus